=== PATIENT | female | born 1955 | race Caucasian/White ===

== ENCOUNTER → 2019-01-17 | Outpatient (CLI) | payer BC ==
--- NOTE | 2019-01-18 11:53 | MY ---
[id number] ELANA/ELANA Screening Bilateral REASON FOR EXAM: Screening (asymptomatic). PROCEDURE: Screen Digital Mammogram Bilateral: January 17, 2019 - PRIOR STUDY COMPARISON: 04/08/2014 Bilateral Screening Mammogram, [facility]. 09/29/2016 Bilateral Screening Mammogram, [facility]. 10/05/2017 Bilateral Screening Mammogram, [facility]. TISSUE DENSITY: There are scattered areas of fibroglandular density. BI-RADS 1: Negative RECOMMENDATION: Screening Mammogram of both breasts in 1 year. Brandon Crandall MD 01/18/19 [id number] Thank you for allowing us to participate in the care of your patient.
== END ==
LOC: VM.MAM 11:57
PROVIDERS: ATTEND Family Medicine
DX: Z12.31 Encounter for screening mammogram for malignant neoplasm of breast (principal)
CPT/HCPCS: 77067

== ENCOUNTER 2019-01-24 06:39 | Day surgery (SDC) | payer BC ==
[2019-01-24] MEDS ORDERED: Sodium Chloride 0.9% 10 ML Syringe FLUSH PRN (07:00)
[2019-01-24] MEDS ORDERED: Lactated Ringers 1,000 ML IV SCH (07:00)
[2019-01-24] MEDS ORDERED: Propofol 200 MG/20 ML SDV ONE (08:24)
[2019-01-24] MEDS ORDERED: fentaNYL 100 MCG/2 ML SDV ONE (08:24)
[2019-01-24] MEDS ORDERED: Midazolam 1 MG/ML 2 ML SDV ONE (08:24)
--- NOTE | 2019-01-24 09:35 | OR ---
PREOPERATIVE DIAGNOSES: 1. History of polyps. 2. Family history of polyps. POSTOPERATIVE DIAGNOSIS: Normal colonoscopic exam. PROCEDURE PROPOSED: Total flexible colonoscopy. PROCEDURE DONE: Total flexible colonoscopy. INDICATION: This is a 64-year-old female, who comes in for colonic surveillance due to a personal history of polyps. She also thinks that a brother of hers has had polyps. Her last examination was about 5 years ago. TECHNIQUE: The patient was brought to the endoscopy suite and placed in left lateral decubitus position. She was sedated per [employer] with propofol. A flexible video colonoscope was then passed transanally and under visualization, advanced to the cecum. Examination revealed normal ascending, transverse, descending, sigmoid, and rectal colon. There was no evidence of any diverticulosis, polyps, colitis, or any other abnormalities, and the scope was then withdrawn. The patient tolerated the procedure well. FINAL IMPRESSION: 1. Essentially normal colonoscopic exam. 2. History of polyps. PLAN: I feel that she should continue with colonic surveillance every 5 years hereafter. SCM: 01/24/2019 09:00:03 MODL: 01/24/2019 09:28:32 /[id number]
[2019-01-24 11:16] VITALS: BP 127/69
== END 2019-01-24 10:49 | disposition home or self-care (01) ==
LOC: VM.SDS 06:39
PROVIDERS: ATTEND Surgery
DX: Z12.11 Encounter for screening for malignant neoplasm of colon (principal); I12.9 Hypertensive chronic kidney disease with stage 1 through stage 4 chronic kidney disease, or unspecified chronic kidney disease; N18.3 Chronic kidney disease, stage 3 (moderate); E78.00 Pure hypercholesterolemia, unspecified; E55.9 Vitamin D deficiency, unspecified; E03.9 Hypothyroidism, unspecified; E66.9 Obesity, unspecified; K21.9 Gastro-esophageal reflux disease without esophagitis; J45.20 Mild intermittent asthma, uncomplicated; H81.13 Benign paroxysmal vertigo, bilateral; F33.9 Major depressive disorder, recurrent, unspecified; G25.81 Restless legs syndrome; M81.0 Age-related osteoporosis without current pathological fracture; M17.11 Unilateral primary osteoarthritis, right knee; Z88.0 Allergy status to penicillin; Z88.1 Allergy status to other antibiotic agents; Z91.040 Latex allergy status; Z68.34 Body mass index [BMI] 34.0-34.9, adult; Z86.010 Personal history of colon polyps; Z83.71 Family history of colonic polyps; Z79.51 Long term (current) use of inhaled steroids; Z79.899 Other long term (current) drug therapy
CPT/HCPCS: 45378; J2250; J2704; J3010; J7120

== ENCOUNTER 2019-11-09 10:53 | Emergency (ER) | payer BC ==
[2019-11-09] MEDS ORDERED: Fluorescein 1 MG Ophth Strip EYEBOTH ONE (11:11)
[2019-11-09] MEDS ORDERED: Proparacaine 0.5% Ophth Soln 15 ML Bottle EYELF PRN (11:11)
[2019-11-09] MEDS ORDERED: Polymyxin B/Trimethoprim 10 ML Bottle EYELF ONE (11:20)
--- NOTE | 2019-11-09 11:29 | EDM.PDOC ---
ED HPI GENERAL MEDICAL PROBLEM - General Chief Complaint: Eye Problems Stated Complaint: LEFT EYE SCRATCHED Time Seen by Provider: 11/09/19 11:00 Source of Information: Reports: Patient History Limitations: Reports: No Limitations - History of Present Illness INITIAL COMMENTS - FREE TEXT/NARRATIVE: Patient comes into the emergency department with complaints of a left eye irrita tion. Patient states that she was at home and her kidney was on her lap and was being playful and ended up scratching her left eye. Patient states that she tried to use eyedrops this morning however the irritation continued to progress. Patient is due to be driving a few hours in the car and wanted to have it checked out prior to leaving. Patient denies any visual changes, blurry vision, headache, ocular pressure, or floating spots visual in her eye field. Patient also denies any COVID-19 symptoms. Patient states that she is been relatively healthy and has no other concerns or complaints for today Onset: Sudden Quality: Reports: Other Severity: Moderate Improves with: Reports: Other (closing her eye) Worsens with: Reports: Movement Context: Reports: Other Associated Symptoms: Reports: No Other Symptoms Left Eye Pain Score (Numeric/FACES): 2 - Related Data Allergies Allergy/AdvReac Type Severity Reaction Status Date / Time clindamycin Allergy Rash Verified 11/09/19 13:21 Latex, Natural Rubber Allergy Rash Verified 11/09/19 13:21 Penicillins Allergy Hives Verified 11/09/19 13:21 Home Meds: Home Meds Albuterol [Proair HFA] 2 puff INH Q4HR PRN 08/24/13 [History] Levothyroxine 75 mcg PO DAILY 08/24/13 [History] Metoprolol Succinate [Toprol XL 100mg] 100 mg PO BEDTIME 08/24/13 [History] Sertraline [Zoloft] 100 mg PO BEDTIME 08/24/13 [History] Simvastatin [Zocor] 10 mg PO BEDTIME 08/24/13 [History] buPROPion HCl [Wellbutrin Xl] 300 mg PO BEDTIME 08/24/13 [History] Alendronate [Fosamax] 70 mg PO Q7D@0600 05/21/15 [History] Multivitamin [Multivitamins] 1 each PO BEDTIME 05/21/15 [History] Pramipexole [Mirapex] 0.125 mg PO BEDTIME #30 tablet 05/28/15 [Rx] Cholecalciferol (Vitamin D3) [Vitamin D3] 1 tab PO DAILY 01/21/19 [History] Fluticasone/Salmeterol [Advair 250-50] 1 puff BID 01/21/19 [History] Triamterene/Hydrochlorothiazid [Dyazide 37.5-25] 1 cap PO DAILY 01/21/19 [History] raNITIdine HCL [Zantac] 150 mg PO DAILY 01/21/19 [History] Past Medical History HEENT History: Reports: Hard of Hearing, Other (See Below) Other HEENT History: 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 Cardiovascular History: Reports: High Cholesterol, Hypertension Other Cardiovascular History: hypokalemia Respiratory History: Reports: Asthma Gastrointestinal History: Reports: Colon Polyp, GERD Genitourinary History: [employer] History: Reports: Other (See Below) Musculoskeletal History: Reports: Arthritis Neurological History: Reports: Concussion, Other (See Below) Other Neuro History: restless leg syndrome Psychiatric History: Reports: Depression Endocrine/Metabolic History: Reports: Hypothyroidism, Obesity/BMI 30+, Vitamin D Deficiency, Other (See Below) Other Endocrine/Metabolic History: hyperglycemia, hypodalemia, hypercalcemia Hematologic History: Reports: Anemia - Past Surgical History GI Surgical History: Reports: Appendectomy, Colonoscopy Musculoskeletal Surgical History: Reports: Arthroscopic Knee, Knee Replacement Social & Family History - Family History Family Medical History: Noncontributory ED ROS GENERAL - Review of Systems Review Of Systems: Comprehensive ROS is negative, except as noted in HPI. Constitutional: Reports: No Symptoms HEENT: Reports: No Symptoms Respiratory: Reports: No Symptoms Cardiovascular: Reports: No Symptoms Endocrine: Reports: No Symptoms GI/Abdominal: Reports: No Symptoms : Reports: No Symptoms Musculoskeletal: Reports: No Symptoms Skin: Reports: No Symptoms Neurological: Reports: No Symptoms Psychiatric: Reports: No Symptoms Hematologic/Lymphatic: Reports: No Symptoms ED EXAM GENERAL W FULL EYE - Physical Exam Exam: See Below Exam Limited By: Altered Mental Status General Appearance: Alert, WD/WN, No Apparent Distress Visual Acuity (R) 20/: 60 Visual Acuity (L) 20/: 60 With Correction: No Eyelids: Bilateral: Normal Appearance Conjunctiva & Sclera: Right: Normal Appearance, Left: Discharge Cornea Exam: Right: Normal Appearance, Left: Corneal Abrasion Extraocular Movements: Bilateral: Intact Pupillary Size: Bilateral: 2 mm Pupillary Reaction: Bilateral: Brisk Posterior Chamber: Bilateral: Normal Funduscopic Nose: Normal Inspection, Normal Mucosa Throat/Mouth: Normal Inspection, Normal Lips, No Airway Compromise Head: Atraumatic, Normocephalic Neck: Normal Inspection, Supple, Non-Tender, Full Range of Motion Extremities: Normal Inspection, Normal Range of Motion, Non-Tender, Normal Capillary Refill Neurological: Alert, Oriented, Normal Gait Psychiatric: Normal Affect, Normal Mood Skin Exam: Warm, Dry, Intact, Normal Color Course - Vital Signs Last Recorded V/S: Last Vital Signs Temp 36.3 C 11/09/19 11:00 Pulse 69 11/09/19 11:00 Resp 16 11/09/19 11:00 BP 141/97 H 11/09/19 11:00 Pulse Ox 96 11/09/19 11:00 - Orders/Labs/Meds Meds: Medications Discontinued Medications Generic Name Dose Route Start Last Admin Trade Name Freq PRN Reason Stop Dose Admin Fluorescein Sodium 1 mg 11/09/19 11:11 11/09/19 11:16 Ful-Gavi EYEBOTH 11/09/19 11:12 1 mg ONETIME ONE Administration Polymyxin/Trimethoprim Sulfate 1 ml 11/09/19 11:20 11/09/19 11:33 Polytrim Ophth Soln EYELF 11/09/19 11:21 1 drop ONETIME ONE Administration Proparacaine HCl 1 ml 11/09/19 11:11 11/09/19 11:16 Proparacaine 0.5% Ophth Soln EYELF 1 drop ASDIRECTED PRN Administration Other Departure - Departure Time of Disposition: 11:30 Disposition: Home, Self-Care 01 Condition: Good Clinical Impression: Corneal abrasion Qualifiers: Encounter type: initial encounter Laterality: left Qualified Code(s): S05.02XA - Injury of conjunctiva and corneal abrasion without foreign body, left eye, initial encounter - Discharge Information *PRESCRIPTION DRUG MONITORING PROGRAM REVIEWED*: Not Applicable *COPY OF PRESCRIPTION DRUG MONITORING REPORT IN PATIENT JAQUELINE: Not Applicable Instructions: Polymyxin B; Trimethoprim eye drops, solution, Corneal Abrasion, [id number] Referrals: Marion Zimmerman MD [Primary Care Provider] - Forms: ED Department Discharge Additional Instructions: 1. take eye drops to eye 1 drops 3 times a day for 7 days 2. rest 3. increase your water intake 4. Continue all at home medications 5. Activity and diet as tolerated 6. Can take over the counter Tylenol or ibuprofen for any pain or discomfort 7. Follow up with PCP or eye doctor if symptoms continue, return, or progress 8. Call with any questions or concerns Sepsis Event Note (ED) - Focused Exam Vital Signs: Vital Signs Temp Pulse Resp BP Pulse Ox 11/09/19 11:00 36.3 C 69 16 141/97 H 96 - Assessment/Plan Assessment:: 1. Corneal abrasion Plan: 1. Proparacaine drop to the eye for pain 2. Fluorecin strip with saline to the eye for examination 3. Florescent lamp examination 4. Polytrim eye drops given and sent home with patient for treatment. 5. Patient and nursing staff was updated regarding the plan of care 6. Education provided the patient regarding activity, diet, rest, [id number] medication modalities, and follow-up care was provided 7. Patient and family are agreeable to the above plan of care 8. All questions and concerns were addressed with the patient and family prior to discharge
[2019-11-09 13:27] VITALS: BP 141/97; PULSE 69
== END 2019-11-09 11:40 | disposition home or self-care (01) ==
LOC: VM.ED 10:53
DX: S05.02XA Injury of conjunctiva and corneal abrasion without foreign body, left eye, initial encounter (principal); G25.81 Restless legs syndrome; E78.00 Pure hypercholesterolemia, unspecified; I10 Essential (primary) hypertension; J45.909 Unspecified asthma, uncomplicated; K21.9 Gastro-esophageal reflux disease without esophagitis; F32.9 Major depressive disorder, single episode, unspecified; E03.9 Hypothyroidism, unspecified; E66.9 Obesity, unspecified; Z68.35 Body mass index [BMI] 35.0-35.9, adult; Z88.1 Allergy status to other antibiotic agents; Z91.040 Latex allergy status; Z88.0 Allergy status to penicillin; Z79.899 Other long term (current) drug therapy; X58.XXXA Exposure to other specified factors, initial encounter
CPT/HCPCS: 99283; A9270-GY

== ENCOUNTER 2021-09-09 00:55 | Emergency (ER) | payer MEDICARE, OTHER ==
[2021-09-09] MEDS ORDERED: Ketorolac 30 MG/ML SDV IM ONE (01:27)
[2021-09-09] MEDS ORDERED: Orphenadrine 60 MG/2 ML Inj IM SCH (01:30)
[2021-09-09 02:13] VITALS: BP 169/84; PULSE 90
== END 2021-09-09 02:00 | disposition home or self-care (01) ==
LOC: VM.ED 00:55
DX: M62.838 Other muscle spasm (principal); E78.00 Pure hypercholesterolemia, unspecified; I10 Essential (primary) hypertension; K21.9 Gastro-esophageal reflux disease without esophagitis; E03.9 Hypothyroidism, unspecified; E66.9 Obesity, unspecified; Z68.34 Body mass index [BMI] 34.0-34.9, adult; Z88.1 Allergy status to other antibiotic agents; Z91.040 Latex allergy status; Z88.0 Allergy status to penicillin; Z79.899 Other long term (current) drug therapy
CPT/HCPCS: 93005; 93010; 96372; 99283-25; 99284; J1885; J2360